=== PATIENT | male | born 2005 | race American Indian/Alaskan Native ===

== ENCOUNTER 2024-10-22 16:44 | Emergency (ER) | payer SELFPAY ==
[2024-10-22 17:03] VITALS: BP 132/86; PULSE 90; RESP 20; TEMP 36.8; O2SAT 98; BMI 28.1
== END 2024-10-22 19:48 | disposition left against medical advice (07) ==
PROVIDERS: Emergency Provider Emergency Medicine
DX: K92.0 Hematemesis (principal); Z53.21 Procedure and treatment not carried out due to patient leaving prior to being seen by health care provider
CPT/HCPCS: 99281